=== PATIENT | male | born 1990 | race Caucasian/White ===

== ENCOUNTER 2019-10-30 01:00 | Emergency (ER) | payer SELFPAY ==
[~2019-10-30] VITALS: Ht 198.1 cm; Wt 95.3 kg
[2019-10-30 01:26] VITALS: Ht 198.1 cm; Wt 95.3 kg
[2019-10-30 01:58] LABS: PLATELET COUNT 189 x10^3mcL (130-400); RED CELL DISTRIBUTION WIDTH 12.7 % (11.5-14.5)
[2019-10-30 02:05] LABS: CARBON DIOXIDE 26.2 mmol/L (21-32); CHLORIDE SERUM 104 mmol/L (98-107); GLUCOSE SERUM 117 mg/dL (74-106); POTASSIUM SERUM 4.1 mmol/L (3.5-5.1); SODIUM SERUM 138 mmol/L (136-145)
[2019-10-30 02:06] LABS: CALCIUM 8.3 mg/dL (8.5-10.1); CREATININE SERUM 1.2 mg/dL (0.7-1.3); GFR1 > 60 mL/min
[2019-10-30 02:10] LABS: ALKALINE PHOSPHATASE 65 U/L (46-116); ALT/SGPT 26 U/L (16-63); BILIRUBIN TOTAL 0.32 mg/dL (0.20-1.00); LIPASE 164 IU/L (73-393); TOTAL PROTEIN, SERUM 7.1 g/dL (6.4-8.2)
[2019-10-30 02:29] LABS: AST/SGOT 2 U/L (15-37)
[2019-10-30 03:39] LABS: microscopic required? NO
[2019-10-30 03:43] LABS: urine erythrocyte NEGATIVE (NEGATIVE)
[2019-10-30 05:44] VITALS: BP 118/76
[2019-10-30 06:06] LABS: AMPHETAMINE QUAL UR NONE DETECTED (See below)
== END 2019-10-30 05:44 | disposition home or self-care (01) ==
LOC: ED 01:00
PROVIDERS: Emergency Medicine
DX: R11.2 Nausea with vomiting, unspecified (principal); R42 Dizziness and giddiness; Z88.0 Allergy status to penicillin
CPT/HCPCS: J2060; J3490; J7030